=== PATIENT | male | born 1990 | race African-American/Black ===

== ENCOUNTER 2018-04-17 14:09 | Emergency (ER) | payer OTHER ==
[~2018-04-17] VITALS: Ht 180.3 cm; Wt 143.2 kg
[~2018-04-17 14:09] MED LIST: [UNRECOGNIZED DRUG - OTHER] PO; antidepressant PO
[2018-04-17] MEDS ORDERED: LIDOCAINE/PF 1% 5 ML VIAL INJ ONE (15:45)
[2018-04-17] MEDS ORDERED: PERTUSS(ACELL),DIPH,TET VAC/PF 0.5 ML VIAL IM ONE (15:45)
[2018-04-17] MEDS ORDERED: BACITRACIN 0.9 GM PACKET OINTMENT TP ONE (16:15)
[2018-04-17 16:31] VITALS: BP 130/80
== END 2018-04-17 16:31 | disposition home or self-care (01) ==
LOC: EMS 14:10
DX: S41.112A Laceration without foreign body of left upper arm, initial encounter (principal); R03.0 Elevated blood-pressure reading, without diagnosis of hypertension; G43.909 Migraine, unspecified, not intractable, without status migrainosus; F32.9 Major depressive disorder, single episode, unspecified; W45.8XXA Other foreign body or object entering through skin, initial encounter; Y93.89 Activity, other specified; Y92.89 Other specified places as the place of occurrence of the external cause; Y99.8 Other external cause status
CPT/HCPCS: 12001; 90471; 90715; 99283; J3490